=== PATIENT | female | born 1950 | race Caucasian/White ===

== ENCOUNTER → 2025-09-09 09:38 | Outpatient (REF) | payer MEDICARE, OTHER, SELFPAY | LOC: RAD 09:38 | PROVIDERS: ATTENDING PHYSICIAN Physician Assistant; REFERRING PHYSICIAN Obstetrics & Gynecology | DX: N93.9 Abnormal uterine and vaginal bleeding, unspecified (principal); N39.41 Urge incontinence | CPT/HCPCS: 76770; 76830; 76856 ==